=== PATIENT | female | born 1955 | race Asian ===

== ENCOUNTER 2017-10-14 19:21 | Emergency (ER) | payer OTHER ==
[~2017-10-14] VITALS: Ht 154.9 cm; Wt 63.5 kg
[~2017-10-14 19:21] MED LIST: LINZESS145 MCG PO; SIMVASTATIN20 MG PO
== END 2017-10-14 20:43 | disposition home or self-care (01) ==
LOC: ED 19:21
PROC: 0HQGXZZ Repair Left Hand Skin, External Approach (ICD-10-PCS; principal; 2017-10-14)
DX: S61.211A Laceration without foreign body of left index finger without damage to nail, initial encounter (principal); Z79.899 Other long term (current) drug therapy; W45.8XXA Other foreign body or object entering through skin, initial encounter
CPT/HCPCS: 12001; 90471; 90715; 99282

== ENCOUNTER 2017-11-06 11:34 | Emergency (ER) | payer OTHER ==
[~2017-11-06] VITALS: Ht 154.9 cm; Wt 63.5 kg
[2017-11-06] MEDS ORDERED: TESSALON PERLE100 MG PO (12:44)
[2017-11-06] MEDS ORDERED: METHYLPREDNISOLO4 M1 PO (12:44)
[2017-11-06] MEDS ORDERED: ZITHROMAX250 MG PO (12:44)
--- NOTE | 2017-11-07 14:26 | EKG ---
[facility] [address] [facility] [place], [place] [address] Signed Sinus tachycardia Otherwise normal ECG Confirmed by MELLO CULLEN MD ([id number]) on 11/07/2017 2:26:32 PM Electronically Signed By: MELLO CULLEN MD 11/07/17 1426 PATIENT NAME: GIO MONTES DE OCA Electrocardiogram DATE OF : 57 PHYSICIAN: MELLO CULLEN MD REPORT #: [id number] REPORT IS CONFIDENTIAL AND NOT TO BE RELEASED WITHOUT AUTHORIZATION
== END 2017-11-06 13:00 | disposition home or self-care (01) ==
LOC: ED 11:34
DX: J40 Bronchitis, not specified as acute or chronic (principal); J06.9 Acute upper respiratory infection, unspecified
CPT/HCPCS: 71010; 80053; 84484; 85025; 93005; 93010; 99284; J7030

== ENCOUNTER 2018-05-28 14:18 | Emergency (ER) | payer OTHER ==
[~2018-05-28] VITALS: Ht 154.9 cm; Wt 59.0 kg
[~2018-05-28 14:18] MED LIST changes: +METHYLPREDNISOLO4 M1 PO; +TESSALON PERLE100 MG PO; +ZITHROMAX250 MG PO
== END 2018-05-28 17:46 | disposition home or self-care (01) ==
LOC: ED 14:18
DX: T67.9XXA Effect of heat and light, unspecified, initial encounter (principal); E86.0 Dehydration
CPT/HCPCS: 80053; 81001; 83690; 85025; 96361; 96374; 99284; J2405; J7030

== ENCOUNTER 2019-09-07 13:40 | Emergency (ER) | payer OTHER ==
[~2019-09-07] VITALS: Ht 154.9 cm; Wt 63.5 kg
[2019-09-07] MEDS ORDERED: MECLIZINE HCL25 MG PO (16:01)
--- NOTE | 2019-09-08 08:07 | EKG ---
[facility] [address] [facility] [place], [place] [address] Signed Normal sinus rhythm Normal ECG When compared with ECG of 06-NOV-2017 11:38, No significant change was found Confirmed by LAINA LIMON MD ([id number] on 09/08/2019 8:07:03 AM Electronically Signed By: LAINA LIMON MD 09/08/19 0807 PATIENT NAME: GIO MONTES DE OCA TOMEKAHCWYIon Electrocardiogram DATE OF : 57 PHYSICIAN: LAINA LIMON MD REPORT #: [id number] REPORT IS CONFIDENTIAL AND NOT TO BE RELEASED WITHOUT AUTHORIZATION
== END 2019-09-07 16:14 | disposition home or self-care (01) ==
LOC: ED 13:40
DX: R42 Dizziness and giddiness (principal)
CPT/HCPCS: 70450; 80053; 84484; 85025; 85610; 85730; 93005; 93010; 99284-25